=== PATIENT | male | born 1960 | race Caucasian/White ===

== ENCOUNTER 2019-10-20 10:39 | Emergency (ER) | payer BC ==
[~2019-10-20] VITALS: Ht 180.3 cm; Wt 77.1 kg
[2019-10-20 11:00] VITALS: BP 144/91
[2019-10-20] MEDS ORDERED: chlordiazePOXIDE 25mg Cap ORAL ONE (11:00)
[2019-10-20] MEDS ORDERED: LORazepam Inj 2mg/ml 1ml IV ONE ×2 (11:00→12:15)
--- NOTE | 2019-10-20 11:00 | NUR ---
ED Nurse Note: Patient ambulated into ER from home with a complaint of alcohol withdrawal symptoms; shakiness, and anxiety since today. Patient states he had his last alcoholic beverage last night. Patient denies IV drug use. Patient AAOx4, on room air. IV inserted and blood specimen sent to Lab. Patient placed on playground monitor. No s/s of respiratory or cardiovascular distress noted. ERMCarmenza Castro at bedside. EKG done at bedside.
[2019-10-20 11:22] LABS: BASOPHILS % (AUTO) 0.9 % (0.0-2.0); EOSINOPHILS % (AUTO) 2.9 % (0.0-3.0); HEMATOCRIT 51.3 % (42.0-52.0); HEMOGLOBIN 17.7 G/DL (14.2-18.0); LYMPHOCYTES % (AUTO) 24.7 % (20.0-45.0); MEAN CORPUSCULAR VOLUME 89 FL (80-99); MONOCYTES % (AUTO) 6.4 % (1.0-10.0); NEUTROPHILS % (AUTO) 65.1 % (45.0-75.0); PLATELET COUNT 293 K/UL (150-450); RED BLOOD COUNT 5.79 M/UL (4.70-6.10); RED CELL DISTRIBUTION WIDTH 11.6 % (11.6-14.8); WHITE BLOOD COUNT 7.2 K/UL (4.8-10.8)
--- NOTE | 2019-10-20 11:26 | Emergency Room Report ---
History of Present Illness General Chief Complaint: Alcohol Intoxication Source: Patient Present Illness HPI 59-year-old male history of alcohol abuse drinks up to 5 large beer bottles, last drink was yesterday presents with tremulousness, shakiness, agitation started this morning, aggravated by not having alcohol alleviated by having alcohol severity is moderate, constant patient has no history of withdrawal seizures, no history of DTs or formal diagnosis, he states he was discharged with DTs in the past Allergies: Coded Allergies: PENICILLINS (Verified Allergy, Unknown, 10/20/19) Patient History Past Medical History: see triage record Social History: Reports: alcohol use Reviewed Nursing Documentation: PMH: Agreed; PSxH: Agreed Nursing Documentation-PMH Past Medical History: No History, Except For History Of Psychiatric Problem: Yes - Anxiety, depression Review of Systems All Other Systems: negative except mentioned in HPI Physical Exam Vital Signs Date Time Temp Pulse Resp B/P (MAP) Pulse Ox O2 Delivery O2 Flow Rate FiO2 10/20/19 10:55 97.5 85 20 144/91 (108) 99 Room Air Sp02 EP Interpretation: reviewed, normal General Appearance: well appearing, no apparent distress, alert Head: normocephalic, atraumatic Eyes: bilateral eye PERRL, bilateral eye EOMI ENT: uvula midline, moist mucus membranes Neck: supple, thyroid normal, supple/symm/no masses Respiratory: lungs clear, no respiratory distress, no retraction, no accessory muscle use Cardiovascular #1: normal peripheral pulses, regular rate, rhythm, no edema, no gallop, no murmur Gastrointestinal: non tender, soft, no guarding, no rebound Musculoskeletal: normal inspection Neurologic: alert, oriented x3 Psychiatric: anxious Skin: no rash, warm/dry Medical Decision Making Diagnostic Impression: Primary Impression: Alcohol withdrawal Qualified Codes: F10.230 - Alcohol dependence with withdrawal, uncomplicated ER Course 59-year-old male presents with acute alcohol withdrawal, patient is not tachycardic, nondistressed, no tremulousness on exam, patient with mild agitation, patient states he was diagnosed with DTs and discharged from the emergency room which is not consistent, because he would be admitted to the ICU he is never had any seizures with alcohol withdrawal, patient is amenable to seeking outpatient care or checking himself into a facility after discharge, patient was given Ativan, Librium, and fluid hydration with significant improvement in his symptoms Patient states he will follow-up with detox facility Will also provide patient with Librium taper cures report checked Disposition home with return precautions Laboratory Tests Test 10/20/19 10:55 10/20/19 11:30 White Blood Count 7.2 K/UL (4.8-10.8) Red Blood Count 5.79 M/UL (4.70-6.10) Hemoglobin 17.7 G/DL (14.2-18.0) Hematocrit 51.3 % (42.0-52.0) Mean Corpuscular Volume 89 FL (80-99) Mean Corpuscular Hemoglobin 30.6 PG (27.0-31.0) Mean Corpuscular Hemoglobin Concent 34.5 G/DL (32.0-36.0) Red Cell Distribution Width 11.6 % (11.6-14.8) Platelet Count 293 K/UL (150-450) Mean Platelet Volume 6.2 FL (6.5-10.1) L Neutrophils (%) (Auto) 65.1 % (45.0-75.0) Lymphocytes (%) (Auto) 24.7 % (20.0-45.0) Monocytes (%) (Auto) 6.4 % (1.0-10.0) Eosinophils (%) (Auto) 2.9 % (0.0-3.0) Basophils (%) (Auto) 0.9 % (0.0-2.0) Sodium Level 139 MMOL/L (136-145) Potassium Level 3.7 MMOL/L (3.5-5.1) Chloride Level 100 MMOL/L (98-107) Carbon Dioxide Level 31 MMOL/L (21-32) Anion Gap 8 mmol/L (5-15) Blood Urea Nitrogen 9 mg/dL (7-18) Creatinine 1.0 MG/DL (0.55-1.30) Estimate Glomerular Filtration Rate > 60 mL/min (>60) Glucose Level 120 MG/DL (74-106) H Calcium Level 8.6 MG/DL (8.5-10.1) Total Bilirubin 0.4 MG/DL (0.2-1.0) Aspartate Amino Transferase (AST) 20 U/L (15-37) Alanine Aminotransferase (ALT) 31 U/L (12-78) Alkaline Phosphatase 70 U/L (46-116) Total Protein 7.3 G/DL (6.4-8.2) Albumin 3.9 G/DL (3.4-5.0) Globulin 3.4 g/dL Albumin/Globulin Ratio 1.1 (1.0-2.7) Salicylates Level 7.7 ug/mL (2.8-20) Acetaminophen Level < 2 MCG/ML (10-30) L Serum Alcohol < 3 mg/dL Urine Opiates Screen Negative (NEGATIVE) Urine Barbiturates Screen Negative (NEGATIVE) Phencyclidine (PCP) Screen Negative (NEGATIVE) Urine Amphetamines Screen Negative (NEGATIVE) Urine Benzodiazepines Screen Negative (NEGATIVE) Urine Cocaine Screen Negative (NEGATIVE) Urine Marijuana (THC) Screen Negative (NEGATIVE) EKG Diagnostic Results EKG Time: 10:56 EP Interpretation: NSR, rate 68, qtc 450, no acute st elevations, normal axis Last Vital Signs Date Time Temp Pulse Resp B/P (MAP) Pulse Ox O2 Delivery O2 Flow Rate FiO2 10/20/19 10:55 97.5 85 20 144/91 (108) 99 Room Air Disposition: HOME, SELF-CARE Condition: Stable Scripts Chlordiazepoxide (Chlordiazepoxide HCl) 25 Mg Capsule 25 MG ORAL see instructions PRN for withdrawal MDD 300mg, #15 CAP 0 Refills Day 1: 50mg q6h prn withdrawal symptoms Day 2: 25mg q6h prn withdrawal symptoms Day 3: 25mg q12h prn withdrawal symptoms Day 4: 25mg at night prn withdrawal symptoms Not to exceed 300mg over 24 hours Prov: Carter Castro MD 10/20/19 Referrals: NON PHYSICIAN (PCP) [facility] Patient Instructions: Alcohol Use Disorder, Alcohol Abuse and Nutrition, Alcohol Withdrawal Additional Instructions: The patient was provided with discharge instructions, notified to follow-up with a primary care doctor and or specialist in the next 24-48 hours, and to return to the ED if they have worsening of their symptoms. Please note that this report is being documented using [employer] technology. This can lead to erroneous entry secondary to incorrect interpretation by the dictating instrument. Carter Castro MD Oct 20, 2019 11:26
[2019-10-20 11:32] LABS: ANION GAP 8 mmol/L (5-15); BLOOD UREA NITROGEN 9 mg/dL (7-18); CALCIUM 8.6 MG/DL (8.5-10.1); CARBON DIOXIDE 31 MMOL/L (21-32); CHLORIDE 100 MMOL/L (98-107); POTASSIUM 3.7 MMOL/L (3.5-5.1); SODIUM 139 MMOL/L (136-145)
[2019-10-20 11:37] LABS: ALANINE AMINOTRANSFERASE 31 U/L (12-78); ALBUMIN 3.9 G/DL (3.4-5.0); ALBUMIN/GLOBULIN RATIO 1.1 (1.0-2.7); ALKALINE PHOSPHATASE 70 U/L (46-116); ASPARTATE AMINO TRANSFERASE 20 U/L (15-37); BILIRUBIN,TOTAL 0.4 MG/DL (0.2-1.0)
[2019-10-20 12:50] VITALS: BP 157/95
[2019-10-20] MEDS ORDERED: LIBRIUM25 MG ORAL (12:51)
--- NOTE | 2019-10-20 13:00 | NUR ---
ER DISCHARGE NOTE: Patient is cleared to be discharged per ERMD DR ALVARADO, pt is aox4, on room air, with stable vital signs. pt was given dc and prescription instructions, pt was able to verbalize understanding, pt id band and iv site removed without complications. pt is able to ambulate with steady gait. pt took all belongings.
[2019-10-20 13:48] VITALS: BP 157/95
--- NOTE | 2019-10-21 19:21 | Cardiology Report ---
APPROVED REPORT EKG Measurement Heart [id number] Normal sinus rhythm Nonspecific T wave abnormality Abnormal ECG
== END 2019-10-20 13:48 | disposition home or self-care (01) ==
LOC: EMR 11:18
DX: F10.230 Alcohol dependence with withdrawal, uncomplicated (principal); R45.1 Restlessness and agitation; Z88.0 Allergy status to penicillin; F41.9 Anxiety disorder, unspecified; F32.9 Major depressive disorder, single episode, unspecified
CPT/HCPCS: 36415; 80053; 80307; 82962; 85025; 93005; 96361; 96374; 96376; 99284; G0480

== ENCOUNTER 2020-01-05 18:54 | Emergency (ER) | payer BC ==
[~2020-01-05] VITALS: Ht 177.8 cm; Wt 79.4 kg
[~2020-01-05 18:54] MED LIST: LIBRIUM25 MG ORAL
[2020-01-05 20:33] VITALS: BP 127/83
[2020-01-05] MEDS ORDERED: ABILIFY2 MG ORAL (20:38)
[2020-01-05] MEDS ORDERED: LEXAPRO20 MG ORAL (20:38)
--- NOTE | 2020-01-05 20:40 | NUR ---
ED Nurse Note: patient not in waiting room
--- NOTE | 2020-01-05 20:50 | NUR ---
ED Nurse Note: patient left without being seen.
--- NOTE | 2020-01-05 21:00 | NUR ---
ED Nurse Note: patient not in waiting room. left without being seen
--- NOTE | 2020-01-06 02:03 | Emergency Room Report ---
History of Present Illness General Chief Complaint: Alcohol Intoxication Source: Patient Present Illness Allergies: Coded Allergies: PENICILLINS (Verified Allergy, Unknown, 10/20/19) Nursing Documentation-[facility] Past Medical History: No History, Except For Physical Exam Vital Signs Date Time Temp Pulse Resp B/P (MAP) Pulse Ox O2 Delivery O2 Flow Rate FiO2 01/05/20 20:33 98.1 90 26 127/83 (98) 95 Room Air Medical Decision Making Diagnostic Impression: Primary Impression: Acute alcoholic intoxication Additional Impression: Patient left without being seen ER Course Patient left without being seen. Left prior to triage or MD evaluation Last Vital Signs Date Time Temp Pulse Resp B/P (MAP) Pulse Ox O2 Delivery O2 Flow Rate FiO2 01/05/20 21:00 90 26 Room Air 01/05/20 20:33 98.1 127/83 (98) 95 Status: unchanged Disposition: LEFT W/OUT BEING SEEN Condition: Stable Referrals: NON PHYSICIAN (PCP) Adis Guerin MD Jan 06, 2020 02:03
[2020-01-06] MEDS ORDERED: LIBRIUM25 MG ORAL (16:25)
[2020-01-06] MEDS ORDERED: ONDANSETRON ODT4 MG BC (17:42)
== END 2020-01-06 00:30 | disposition left against medical advice (07) ==
LOC: EMR 01-06 00:17
DX: Z53.21 Procedure and treatment not carried out due to patient leaving prior to being seen by health care provider (principal); Z88.0 Allergy status to penicillin

== ENCOUNTER 2020-01-06 15:08 | Emergency (ER) | payer BC ==
[~2020-01-06] VITALS: Ht 177.8 cm; Wt 78.9 kg
[~2020-01-06 15:08] MED LIST changes: +ABILIFY2 MG ORAL; +LEXAPRO20 MG ORAL
[2020-01-06 15:55] VITALS: BP 142/94
--- NOTE | 2020-01-06 15:55 | NUR ---
ED Nurse Note: Pt ambulated to ED d/t ETOH withdrawal syndrome. Per pt he took some beer early this morning. Pt is AOx4 noted with mild generalized jittering. Pt able to urinate; sent to labs.
--- NOTE | 2020-01-06 15:56 | Emergency Room Report ---
History of Present Illness General Chief Complaint: Alcohol Intoxication Source: Patient, Friend Present Illness HPI Disclaimer: Please note that this report is being documented using [employer]AG[employer] technology. This can lead to erroneous entry secondary to incorrect interpretation by the dictating instrument. HPI: 59-year-old male with a history of alcohol abuse presents for evaluation of withdrawal symptoms. His last drink was this morning. He has been trying to detox on his own over the past few days. Reports tremulousness, palpitations , fatigue, lightheadedness. There was no syncope. He has no history of delirium tremens or withdrawal seizures. He takes Seroquel, Abilify for his depression has not missed any doses. Denies chest pain or shortness of breath. He is looking into outpatient detox programs currently and is requesting for help controlling the symptoms PMH: Alcohol abuse, depression PSH: Reviewed Allergies: Penicillin Social Hx: Alcohol abuse1 Allergies: Coded Allergies: PENICILLINS (Verified Allergy, Unknown, 10/20/19) Review of Systems All Other Systems: negative except mentioned in HPI Physical Exam Vital Signs Date Time Temp Pulse Resp B/P (MAP) Pulse Ox O2 Delivery O2 Flow Rate FiO2 01/06/20 15:46 98.2 93 26 142/94 (110) 98 Room Air General: Awake and alert, appears anxious HEENT: NC/AT. EOMI. Cardiovascular: RRR. S1 and S2 normal. No murmur appreciated Resp: Normal work of breathing. No cough, wheezing or crackles appreciated Abdomen: Abdomen is soft, nondistended. Nontender Skin: Intact. No abrasions, laceration or rash over the exposed skin MSK: Normal tone and bulk. Moving all extremities. No obvious deformity. Neuro: Awake and alert. Mentating appropriately. Anxious appearing. Fine tremors in the extremities. Medical Decision Making Diagnostic Impression: Primary Impression: Alcohol withdrawal ER Course 59-year-old male presents for evaluation of alcohol withdrawal symptoms including tremulousness, fatigue. He was currently trying to detox and to get himself into an outpatient detox program. Last drink was this morning. No history of DTs or withdrawal seizures. Will give IV fluids, Ativan, Librium and check screening labs. Once his symptoms are controlled he can be discharged with Librium taper to follow-up with his outpatient detox services. Laboratory Tests Test 01/06/20 16:24 White Blood Count 6.9 K/UL (4.8-10.8) Red Blood Count 6.19 M/UL (4.70-6.10) H Hemoglobin 18.6 G/DL (14.2-18.0) *H Hematocrit 56.2 % (42.0-52.0) H Mean Corpuscular Volume 91 FL (80-99) Mean Corpuscular Hemoglobin 30.1 PG (27.0-31.0) Mean Corpuscular Hemoglobin Concent 33.1 G/DL (32.0-36.0) Red Cell Distribution Width 13.2 % (11.6-14.8) Platelet Count 335 K/UL (150-450) Mean Platelet Volume 7.4 FL (6.5-10.1) Neutrophils (%) (Auto) 50.4 % (45.0-75.0) Lymphocytes (%) (Auto) 36.1 % (20.0-45.0) Monocytes (%) (Auto) 8.6 % (1.0-10.0) Eosinophils (%) (Auto) 2.8 % (0.0-3.0) Basophils (%) (Auto) 2.1 % (0.0-2.0) H Sodium Level 138 MMOL/L (136-145) Potassium Level 4.7 MMOL/L (3.5-5.1) Chloride Level 101 MMOL/L (98-107) Carbon Dioxide Level 21 MMOL/L (21-32) Anion Gap 16 mmol/L (5-15) H Blood Urea Nitrogen 6 mg/dL (7-18) L Creatinine 0.8 MG/DL (0.55-1.30) Estimate Glomerular Filtration Rate > 60 mL/min (>60) Glucose Level 104 MG/DL (74-106) Calcium Level 9.9 MG/DL (8.5-10.1) Total Bilirubin 0.6 MG/DL (0.2-1.0) Aspartate Amino Transferase (AST) 49 U/L (15-37) H Alanine Aminotransferase (ALT) 35 U/L (12-78) Alkaline Phosphatase 90 U/L (46-116) Troponin I 0.000 ng/mL (0.000-0.056) Total Protein 7.9 G/DL (6.4-8.2) Albumin 4.1 G/DL (3.4-5.0) Globulin 3.8 g/dL Albumin/Globulin Ratio 1.1 (1.0-2.7) Urine Opiates Screen Negative (NEGATIVE) Urine Barbiturates Screen Negative (NEGATIVE) Phencyclidine (PCP) Screen Negative (NEGATIVE) Urine Amphetamines Screen Negative (NEGATIVE) Urine Benzodiazepines Screen Negative (NEGATIVE) Urine Cocaine Screen Negative (NEGATIVE) Urine Marijuana (THC) Screen Negative (NEGATIVE) Serum Alcohol < 3 mg/dL EKG Diagnostic Results EKG Time: 16:14 Rate: normal Rhythm: NSR ST Segments: no acute changes Other Impression Sinus rhythm, normal axis, normal intervals, no ST segment changes Rhythm Strip Diag. Results Rhythm Strip Time: 16:14 EP Interpretation: yes Rate: 80s Rhythm: NSR, no PVC's, no ectopy Reevaluation Time: 17:45 Last Vital Signs Date Time Temp Pulse Resp B/P (MAP) Pulse Ox O2 Delivery O2 Flow Rate FiO2 01/06/20 15:46 98.2 93 26 142/94 (110) 98 Room Air Reevaluation Impression EKG unremarkable. Labs have returned within normal limits. Patient is feeling better after receiving medications and IV fluids. His vital signs are stable. Believe he is stable for outpatient follow-up. Included resources in his discharge paperwork and as well as a Librium taper and Zofran to treat symptomatically. He will follow-up on an outpatient basis and return with new or worsening symptoms. He understands and agrees with this treatment plan Disposition: HOME, SELF-CARE Condition: Stable Scripts Ondansetron Odt* (ZOFRAN ODT*) 4 Mg Tab.rapdis 4 MG BC EVERY 6 HOURS PRN for Nausea & Vomiting, #20 TAB 0 Refills Prov: Gerber Mitchell MD 01/06/20 Chlordiazepoxide (Chlordiazepoxide HCl) 25 Mg Capsule 25 MG ORAL see instructions PRN for withdrawal MDD 300mg, #15 CAP 0 Refills Day 1: 50mg q6h prn withdrawal symptoms Day 2: 25mg q6h prn withdrawal symptoms Day 3: 25mg q12h prn withdrawal symptoms Day 4: 25mg at night prn withdrawal symptoms Not to exceed 300mg over 24 hours Prov: Gerber Mitchell MD 01/06/20 Gerber Mitchell MD Jan 06, 2020 15:56
[2020-01-06] MEDS ORDERED: chlordiazePOXIDE 25mg Cap ORAL ONE (16:00)
[2020-01-06] MEDS ORDERED: LORazepam Inj 2mg/ml 1ml IV ONE (16:00)
[2020-01-06] MEDS ORDERED: LIBRIUM25 MG ORAL (16:25)
[2020-01-06 17:04] LABS: ANION GAP 16 mmol/L (5-15); BLOOD UREA NITROGEN 6 mg/dL (7-18); CALCIUM 9.9 MG/DL (8.5-10.1); CARBON DIOXIDE 21 MMOL/L (21-32); CHLORIDE 101 MMOL/L (98-107); CREATININE 0.8 MG/DL (0.55-1.30); POTASSIUM 4.7 MMOL/L (3.5-5.1); SODIUM 138 MMOL/L (136-145)
[2020-01-06 17:19] LABS: BASOPHILS % (AUTO) 2.1 % (0.0-2.0); EOSINOPHILS % (AUTO) 2.8 % (0.0-3.0); HEMATOCRIT 56.2 % (42.0-52.0); LYMPHOCYTES % (AUTO) 36.1 % (20.0-45.0); MEAN CORPUSCULAR VOLUME 91 FL (80-99); MONOCYTES % (AUTO) 8.6 % (1.0-10.0); NEUTROPHILS % (AUTO) 50.4 % (45.0-75.0); PLATELET COUNT 335 K/UL (150-450); RED BLOOD COUNT 6.19 M/UL (4.70-6.10); RED CELL DISTRIBUTION WIDTH 13.2 % (11.6-14.8); WHITE BLOOD COUNT 6.9 K/UL (4.8-10.8)
[2020-01-06 17:20] LABS: ALANINE AMINOTRANSFERASE 35 U/L (12-78); ALBUMIN 4.1 G/DL (3.4-5.0); ALBUMIN/GLOBULIN RATIO 1.1 (1.0-2.7); ALKALINE PHOSPHATASE 90 U/L (46-116); ASPARTATE AMINO TRANSFERASE 49 U/L (15-37); BILIRUBIN,TOTAL 0.6 MG/DL (0.2-1.0)
[2020-01-06 17:24] LABS: HEMOGLOBIN 18.6 G/DL (14.2-18.0)
[2020-01-06] MEDS ORDERED: ONDANSETRON ODT4 MG BC (17:42)
[2020-01-06 17:43] VITALS: BP 146/83
[2020-01-06 17:52] VITALS: BP 146/83
--- NOTE | 2020-01-06 17:52 | NUR ---
ER DISCHARGE NOTE: Patient is cleared to be discharged per ERMD, pt is aox4, on room air, with stable vital signs. pt was given dc and prescription instructions, pt was able to verbalize understanding, pt id band and iv site removed without complications. pt is able to ambulate with steady gait. pt took all belongings.
== END 2020-01-06 17:52 | disposition home or self-care (01) ==
LOC: EMR 15:59
DX: F10.239 Alcohol dependence with withdrawal, unspecified (principal); Z88.0 Allergy status to penicillin; F32.9 Major depressive disorder, single episode, unspecified
CPT/HCPCS: 36415; 80053; 80307; 84484; 85025; 93005; 96361; 96374; 96375; 99284; G0480; J2405; J7030